=== PATIENT | male | born 1985 | race Caucasian/White ===

== ENCOUNTER 2016-07-18 07:29 | Emergency (ER) | payer BC, OTHER ==
[2016-07-18 07:43] VITALS: BP 167/104
--- NOTE | 2016-07-18 07:46 | EDM.PDOC ---
ED HPI GENERAL MEDICAL PROBLEM - General Chief Complaint: Gastrointestinal Problem Stated Complaint: ISSUES WITH GASTRO INTESTINAL ISSUES Time Seen by Provider: 07/18/16 07:41 - History of Present Illness INITIAL COMMENTS - FREE TEXT/NARRATIVE: 30-year-old male presents emergency room with rectal pain and drainage. Patient is finishing a course of Cipro today is his last day. He has about a 4-1 /2-year history of recurrent perirectal abscesses with fistulas. He has had a colonoscopy in the past no history of Crohn's. Her Recently the pain has been getting worse the patient was seen in [place] where he currently resides about a week ago. He was sent to [place] for further evaluation. According to the patient they could not do much for him there. He had a CBC done that was not significantly abnormal. The patient has a C tong drain that has been in for almost 7 months. He's been on several courses of antibiotics since that time. Currently his pain is getting worse his drainage is continuing. The patient has had a colonoscopy in the past several years ago he had an appendicitis complicated by hemorrhage several days postoperatively. Prior to this appendicitis he had back surgery were he had an anterior approach. Patient was living in [facility] was referred to [facility] where the drain was placed. Currently he is working in [place]. Rectal Pain Score (Numeric/FACES): 8 - Related Data Allergies Allergy/AdvReac Type Severity Reaction Status Date / Time tramadol Allergy Seizure Verified 07/18/16 07:43 Home Meds: Home Meds Gabapentin [Neurontin] 1,200 mg PO TID 08/13/14 [History] Hydrocodone/Acetaminophen [[place]ipley 5-325] 1 tab PO Q4H PRN #10 tablet 07/18/16 [Rx ] Past Medical History HEENT History: Reports: Impaired Vision Cardiovascular History: Reports: Hypertension Respiratory History: Reports: None Other Gastrointestinal History: jad-rectal abccess Genitourinary History: Reports: None Neurological History: Reports: Neuropathy, Peripheral Psychiatric History: Reports: None Endocrine/Metabolic History: Reports: Obesity/BMI 30+ Hematologic History: Reports: None Immunologic History: Reports: None Oncologic (Cancer) History: Reports: None Dermatologic History: Reports: None - Past Surgical History Head Surgeries/Procedures: Reports: None Musculoskeletal Surgical History: Reports: Shoulder Surgery Social & Family History - Family History Family Medical History: Noncontributory - Tobacco Use Smoking Status *Q: Current Every Day Smoker Years of Tobacco use: 10 Packs/Tins Daily: 1 Used Tobacco, but Quit: No - Caffeine Use Caffeine Use: Reports: Coffee - Recreational Drug Use Recreational Drug Use: No ED ROS GENERAL - Review of Systems Review Of Systems: See Below Constitutional: Reports: Fever (He's had a temperature up to about 100 at home) . Denies: No Symptoms Respiratory: Reports: No Symptoms Cardiovascular: Reports: No Symptoms GI/Abdominal: Denies: Constipation, Diarrhea, Nausea, Stool Incontinence, Vomiting : Reports: No Symptoms ED EXAM, GI/ABD - Physical Exam Exam: See Below Exam Limited By: No Limitations General Appearance: Alert, No Apparent Distress Head: Atraumatic, Normocephalic Neck: Normal Inspection, Supple, Non-Tender, Full Range of Motion. No: Lymphadenopathy (L), Lymphadenopathy (R) Respiratory/Chest: No Respiratory Distress, Lungs Clear, Normal Breath Sounds Cardiovascular: Regular Rate, Rhythm, No Edema, No Murmur GI/Abdominal: Normal Bowel Sounds, Soft, Non-Tender Rectal (Males) Exam: Other (Rectal exam shows train in place mild perirectal erythema fistulas noted at 8:00 digital rectal exam is exquisitely tender) Course - Vital Signs Last Recorded V/S: Last Vital Signs Temp 36.6 C 07/18/16 07:40 Pulse 86 07/18/16 07:40 Resp 16 07/18/16 07:40 BP 167/104 H 07/18/16 07:40 Pulse Ox 98 07/18/16 07:40 - Orders/Labs/Meds Labs: Laboratory Tests 07/18/16 07/18/16 Range/Units 08:10 08:10 WBC 7.98 (4.23-9.07) K/mm3 RBC 5.34 (4.63-6.08) M/mm3 Hgb 15.9 (13.7-17.5) gm/L Hct 45.9 (40.1-51.0) % MCV 86.0 (79.0-92.2) fl MCH 29.8 (25.7-32.2) pg MCHC 34.6 (32.2-35.5) g/dl RDW Std Deviation 41.0 (35.1-43.9) fL Plt Count 228 (163-337) K/mm3 MPV 9.3 L (9.4-12.3) fl Neutrophils % (Manual) 68 H (40-60) % Band Neutrophils % 1 (0-10) % Lymphocytes % (Manual) 27 (20-40) % Atypical Lymphs % 0 % Monocytes % (Manual) 0 L (2-10) % Eosinophils % (Manual) 3 (0.8-7.0) % Basophils % (Manual) 1 (0.2-1.2) Platelet Estimate Adequate RBC Morph Comment Normal Sodium 141 (136-145) mEq/L Potassium 3.7 (3.5-5.1) mEq/L Chloride 106 (98-107) mEq/L Carbon Dioxide 24 (21-32) mEq/L Anion Gap 14.7 (5-15) BUN 10 (7-18) mg/dL Creatinine 0.9 (0.7-1.3) mg/dL Est Cr Clr Drug Dosing 135.63 mL/min Estimated GFR (MDRD) > 60 (>60) mL/min BUN/Creatinine Ratio 11.1 L (14-18) Glucose 114 H (74-106) mg/dL Calcium 8.9 (8.5-10.1) mg/dL Meds: Medications Discontinued Medications Generic Name Dose Route Start Last Admin Trade Name Griffinq PRN Reason Stop Dose Admin Diatrizoate Meglum/Diatrizoate Sod 90 ml 07/18/16 08:50 07/18/16 09:35 Gastrografin 37% PO 07/18/16 08:51 90 ml ONETIME ONE Administration Lactated Ringer's 1,000 mls @ 999 mls/hr 07/18/16 07:59 07/18/16 08:10 Ringers, Lactated IV 07/18/16 08:59 999 mls/hr .BOLUS ONE Administration Iopamidol 125 ml 07/18/16 08:50 07/18/16 09:36 Isovue-300 (61%) IVPUSH 07/18/16 08:51 125 ml ONETIME ONE Administration Sodium Chloride 10 ml 07/18/16 08:50 07/18/16 09:35 Saline Flush FLUSH 07/18/16 08:51 10 ml ONETIME ONE Administration - Re-Assessments/Exams Free Text/Narrative Re-Assessment/Exam: 07/18/16 08:12 This point we will obtain a CBC basic metabolic panel start a liter of fluid and order he abdominal pelvic CT with IV and oral contrast. Case reviewed with Dr. Quevedo. Currently the patient is driving himself and will not be getting pain medications. Patient understands. 07/18/16 10:32 Patient is doing okay at this time his laboratory evaluation is unrevealing CT is nondiagnostic but shows a catheter within the perirectal soft tissues no additional abnormalities is appreciated around the rectum other areas of the abdomen and pelvis appear to be within normal limits. Case discussed with Dr. Quevedo the patient ideally should followup with the surgeon in [place] that put the drain in. However Dr. Quevedo is willing to see the patient if this cannot be arranged. We will not extend his antibiotics at this point. Departure - Departure Time of Disposition: 10:33 Disposition: Home, Self-Care 01 Clinical Impression: Perirectal discomfort - Discharge Information Prescriptions: Hydrocodone/Acetaminophen [Ripley 5-325] 1 tab PO Q4H PRN #10 tablet PRN Reason: Pain Referrals: PCP,None [Primary Care Provider] - Nadia Quevedo MD [Physician] - Forms: ED Department Discharge Additional Instructions: Return to the emergency room with any questions or problems. Followup with your surgeon in [place] as soon as he can ideally today or the first part of next week. If you cannot get in to see your regular surgeon, followup with Dr. Quevedo at the [facility]. You have been given a few hydrocodone for pain. Use only in the evenings. Allow 12 hours after using this medication before driving or returning to work.
[2016-07-18] MEDS ORDERED: Lactated Ringers 1,000 ML IV ONE (07:59)
[2016-07-18] MEDS ORDERED: Diatrizoate Meglumine/Diatrizoate Sodium 37% 120 ML Bottle PO ONE (08:50)
[2016-07-18] MEDS ORDERED: Sodium Chloride 0.9% 10 ML Syringe FLUSH ONE (08:50)
[2016-07-18] MEDS ORDERED: Iopamidol 612 MG/ML 150 ML Bottle IVPUSH ONE (08:50)
--- NOTE | 2016-07-18 10:18 | CT ---
CT abdomen and pelvis Technique: Multiple axial sections were obtained from above the dome of the diaphragm inferiorly through the pubic symphysis. Intravenous and oral contrast was utilized. Comparison: Previous CT pelvis exam of 08/13/14. Findings: Small portion of the visualized lung bases shows nothing acute. Liver shows no focal parenchymal abnormality. Spleen appears within normal limits. Adrenal glands appear within normal limits. Pancreas appears within normal limits. Kidneys show symmetric contrast enhancement without hydronephrosis or mass. Aorta shows no aneurysmal dilatation. No retroperitoneal adenopathy or mesenteric abnormalities are seen. No pelvic mass or adenopathy is seen. Catheter is identified within the perirectal soft tissues. Fat within the perirectal region appears preserved. No inflammatory change is seen to extend outside the rectal muscles. Delayed images shows contrast within the distal ureters and bladder. Bone window settings were reviewed which shows previous surgery at L4-L5 with transpedicle screws and disc fusion. Minimal degenerative change is noted within the lower thoracic spine. Impression: 1. Catheter within the perirectal soft tissues. No additional abnormality is appreciated by CT exam around the rectum. 2. Other portions of the CT exam of the abdomen and pelvis also appear within normal limits. 3. Incidental spine findings as described above. Diagnostic code #2
== END 2016-07-18 10:55 | disposition home or self-care (01) ==
LOC: JD.ED 07:29
DX: K62.89 Other specified diseases of anus and rectum (principal); I10 Essential (primary) hypertension; F17.210 Nicotine dependence, cigarettes, uncomplicated; E66.9 Obesity, unspecified; Z88.5 Allergy status to narcotic agent; Z79.899 Other long term (current) drug therapy; Z68.34 Body mass index [BMI] 34.0-34.9, adult
CPT/HCPCS: 36415; 74177; 80048; 85025; 96360; 99284; J7050; J7120; Q9963; Q9967